=== PATIENT | female | born 1965 | race Caucasian/White ===

== ENCOUNTER → 2022-01-16 | Outpatient (CLI) | payer MEDICAID, SELFPAY | END | disposition home or self-care (01) | LOC: PSN 09:46 | PROVIDERS: Referring Provider Internal Medicine Cardiovascular Disease; Visit Provider Internal Medicine Cardiovascular Disease | DX: I48.0 Paroxysmal atrial fibrillation (principal) | CPT/HCPCS: 93225; 93226 ==

== ENCOUNTER → 2022-01-17 | Outpatient (CLI) | payer MEDICAID, SELFPAY ==
--- NOTE | 2022-01-17 10:49 | ECHOCS_ITS ---
Reason For Study: Afib, Aflutter Procedure This was a 2D Doppler, Color Flow transthoracic echocardiogram. Contrast injection was performed. Exam performed in department. Left Ventricle Normal LV size. Left ventricular systolic function is normal. The estimated ejection fraction is 55 %. No regional wall motion abnormalities noted. Right Ventricle Normal RV size. Normal systolic function. Atria Normal left atrium. Normal right atrium. Mitral Valve Normal mitral valve. Tricuspid Valve Normal tricuspid valve. Mild tricuspid valve insufficiency. Pulmonary artery systolic pressure is 20 mmHg. Aortic Valve Trisinus/trileaflet aortic valve. Pulmonic Valve Normal pulmonic valve. Great Vessels Normal aortic root. The pulmonary artery is normal size. Normal inferior vena cava. Pericardium/Pleural No pericardial effusion. Medication Diluted definity 3ml given slow IV push to enhance endocardial definition. MMode/2D Measurements & Calculations LVIDd: 4.6 cm IVSd: 0.79 cm Ao root diam: 2.9 cm LVIDs: 3.0 cm LVPWd: 0.77 cm RVDd: 2.2 cm FS: 35.6 % LAV(MOD-bp): 19.5 ml LVAd ap4: 23.2 cm2 SV(MOD-sp4): 36.8 ml LAV(MOD-bp) Indexed: 12.2 ml/m2 LVLd ap4: 6.5 cm LAV(MOD-sp2): 22.9 ml EDV(MOD-sp4): 68.6 ml LAV(MOD-sp4): 16.3 ml EDV(sp4-el): 70.0 ml LVAs ap4: 14.5 cm2 LVLs ap4: 5.6 cm ESV(MOD-sp4): 31.9 ml ESV(sp4-el): 32.1 ml EF(MOD-sp4): 53.6 % EF(sp4-el): 54.2 % SV(sp4-el): 37.9 ml LA A4 area: 10.1 cm2 LA dimension(2D): 3.4 cm RA A4 area: 6.0 cm2 Doppler Measurements & Calculations MV E max niels: 71.4 cm/sec Lat Peak E' Niels: 11.1 cm/sec Med Peak E' Niels: 7.9 cm/sec MV A max niels: 81.2 cm/sec E/E' lat: 6.4 E/E' med: 9.1 MV E/A: 0.88 Ao V2 max: 113.5 cm/sec LV V1 max: 104.0 cm/sec PA V2 max: 89.8 cm/sec Ao max P.2 mmHg LV V1 max P.3 mmHg Ao V2 mean: 81.4 cm/sec Ao mean P.8 mmHg Ao V2 VTI: 24.5 cm TR max niels: 201.8 cm/sec TR max P.3 mmHg ECHO/Echo Complete W/ Contrast Interpretation Summary Normal LV size. Left ventricular systolic function is normal. The estimated ejection fraction is 55 %. Pulmonary artery systolic pressure is 20 mmHg. Contrast injection was performed. Ordering Physician: Flip Coon Referring Physician: Flip Coon Performed By: Steph Araujo, RDCS, RVT
--- NOTE | 2022-01-17 13:49 | STRESSREP ---
Stress Test Report Exercise stress to. 56-year-old lady with a history of atrial fibrillation. Stress protocol: Resting EKG demonstrates normal sinus rhythm with a rate of 62 bpm normal intervals are noted resting blood pressure is 116/70 mmHg. The patient exercised according to the regular Jeffy protocol for total duration of 7 minutes and 46 seconds. Patient completed 1 minute and 46 seconds into stage III of the Jeffy protocol. The maximum heart rate attained was 137 bpm which was 82% of max impacted heart rate the maximum workload was 10.1 metabolic equivalents. At rest there were no ST or T wave changes noted suggest ischemia and at peak exercise upsloping ST changes were noted with did not meet the criteria for ischemia. The peak blood pressure was 130/70 mmHg which was a normal blood pressure respiratory forms to exercise. The patient did experience mild chest heaviness right from the beginning through the test. The above is of questionable significance. Conclusion: Exercise stress test with no EKG criteria for ischemia at a high workload. Chest discomfort of uncertain significance.
== END | disposition home or self-care (01) ==
LOC: CVS 10:47
PROVIDERS: Referring Provider Internal Medicine Cardiovascular Disease; Visit Provider Internal Medicine Cardiovascular Disease
DX: I48.0 Paroxysmal atrial fibrillation (principal); R07.89 Other chest pain
CPT/HCPCS: 93017; 93306; Q9957; A4216; C8929

== ENCOUNTER → 2022-06-14 | Outpatient (CLI) | payer MEDICAID, SELFPAY ==
--- NOTE | 2022-06-14 08:00 | RAD_ITS ---
INDICATION: Chest pain -- Shaggy EXAMINATION/TECHNIQUE: X-RAY - XR Chest 2 Views COMPARISON: None. FINDINGS: LINES/DEVICES: None. LUNGS: No consolidation, edema or effusion. No pneumothorax. Calcified granuloma in the left upper lobe. MEDIASTINUM AND CARDIOVASCULAR STRUCTURES: Cardiac silhouette not enlarged. Central airways and mediastinal contour are unremarkable. BONES AND SOFT TISSUES: Unremarkable. RAD/Chest PA and Lateral IMPRESSION: No acute cardiopulmonary disease. Electronically Signed: Pamela Dowd MD at 17:30 EST Reading Location ID and State: [id number] / Tel , Service support ,
[2022-06-14 08:30] LABS: Absolute Lymphocyte Count 2.39 X10^3/uL (0.83-4.51); Absolute Neutrophil Count 3.9 X10^3/uL (2.0-7.7); Basophil# 0.02 X10^3/uL; Basophil% 0.3 % (0-1); Eosinophil# 0.05 X10^3/uL; Eosinophils% 0.7 % (0-5); Hematocrit 38.9 % (37-47); Hemoglobin 12.3 g/dL (12.0-15.0); Lymphocyte # 2.39 X10^3/ul (0.83-4.51); Lymphocyte % 34.7 % (19-41); Mean Corp Hgb Conc 31.6 g/dL (32-36); Mean Corpuscular Volume 91.7 fL (81-99); Mean Platelet Vol. 10.3 fl (6.2-12.0); Monocyte# 0.53 X10^3/uL; Monocyte% 7.7 % (0-10); NRBC Flagged by Analyzer 0 % (0-5); Neutrophil # 3.88 X10^3/uL (2.7-7.7); Neutrophil % 56.3 % (47-70); Platelet Count 262 K/mm3 (150-450); RBC Distribution Width CV 12.5 % (11.6-14.6); RBC Distribution Width SD 41.5 fl (35.1-43.9); Red Blood Count 4.24 M/mm3 (4.2-5.4); White Blood Count 6.9 K/mm3 (4.4-11.0)
[2022-06-14 09:16] LABS: Anion Gap 5 (5-15); BUN 22 mg/dL (7-18); BUN/Creat Ratio 26.6 RATIO (10-20); Chloride 108 mmol/L (98-107); Creatinine, Serum 0.83 mg/dL (0.55-1.02); EST Glomerular Filtration Rate 76 mL/min (>60); Est Glom Filt Rate - Afr Amer 92 mL/min (>60); Glucose 110 mg/dL (74-106); Potassium 4.4 mmol/L (3.5-5.1); Sodium Level 141 mmol/L (136-145)
[2022-06-14 09:19] LABS: Internal QC Validated? YES +Cl - CLEAR BKGD
[2022-06-14 09:20] LABS: Pregnancy, Serum, hCG Quali. NEGATIVE Negative
== END | disposition home or self-care (01) ==
LOC: LAB 07:50
PROVIDERS: Referring Provider Nurse Practitioner Gerontology; Visit Provider Nurse Practitioner Gerontology
DX: R07.9 Chest pain, unspecified (principal); I47.1 Supraventricular tachycardia
CPT/HCPCS: 36415; 71046; 80048; 84703; 85025

== ENCOUNTER 2022-06-30 07:37 | Day surgery (SDC) | payer MEDICAID, SELFPAY ==
[2022-06-27 10:41] VITALS: BMI 23.3
--- NOTE | 2022-06-30 09:56 | CL.D_ITS ---
Patient Name: JAYCEE CHANG Study Date: 06/30/2022 Performing: Flip Coon MD Ht: 64 inches 162.56 cm : 1965 Wt: 136 lbs 61.69 kg Age: 56 Gender: female BSA: 1.66 PROCEDURE(S) PERFORMED DC01-(29646)LHC/COR/LV CLINICAL PROFILE AND INDICATIONS Indications: Suspected CAD Heart Failure: None Stress/Imaging Date: 06/19/22 CAD Presentations: Symptom unlikely to be ischemic. CONCLUSIONS Non obstructive coronary arteries Normal LV size, wall motion,and systolic function RECOMMENDATIONS Medical therapy DESCRIPTION OF PROCEDURE The patient arrived to the procedure lab. The risks and benefits of the procedure as well as a full description of our services here and current unavailability of surgical backup were fully explained to the patient and/or their significant other prior to the catheterization. The Timeout was completed, verifying the correct patient and procedure. The patient's procedural site was prepped and draped in the usual fashion. Local anesthetic was given subcutaneously to right radial region with Lidocaine 2%. Using a modified Seldinger technique, arterial access was obtained via the right radial artery, a 6Fr sheath was inserted. Left Coronary Artery selective angiography was performed in multiple views using a 5 Fr. 4.0 Jasper catheter. Right Coronary Artery selective angiography was then performed in multiple views using a 5 Fr. 4.0 Jasper catheter. Left Ventriculography was performed in GALLOWAY projection using a 5 Fr. Pigtail catheter. LV to AO pullback pressures were then recorded.The arterial sheath was pulled and a TR Band was applied for hemostasis. 10cc of air CORONARY ANGIOGRAPHY DOMINANCE: Left Dominant LEFT HEART ASSESSMENT Left Ventricular Ejection Fraction: by LV Gram 60 % Normal LV wall motion Normal Left Ventricular systolic function LEFT MAIN: Angiographically normal LEFT ANTERIOR DESCENDING ARTERY: Angiographically normal CIRCUMFLEX ARTERY: No significant disease noted RIGHT CORONARY ARTERY: Angiographically normal COMPLICATIONS No Complications PROCEDURE MEDICATIONS Fentanyl 50 mcg IV Versed 1 mg IV Oxygen: 2 L/min via nasal cannula Benadryl 50 mg IV @ 06/30/2022 09:18:49 Heparin given IA 06/30/2022 09:37:00 Solu-medrol 125 mg IV 06/30/2022 09:19:02 SUMMARY OF HEMODYNAMIC DATA Time AIR REST ECG 07:57:29 Art 122/52 (77) 09:34:00 AO 118/69 (92) SA 09:38:30 LV 113/8, 14 09:43:06 LV 113/3, 5 09:43:12 LV 116/1, 6 09:44:11 LVp 113/0, 6 09:44:16 AOp 126/53 (85) 09:44:21 Signed By Flip Coon MD On 06/30/2022 09:55:14 Flip Coon MD
== END 2022-06-30 12:25 | disposition home or self-care (01) ==
PROVIDERS: Referring Provider Internal Medicine Cardiovascular Disease; Visit Provider Internal Medicine Cardiovascular Disease
DX: I48.0 Paroxysmal atrial fibrillation (principal); R07.89 Other chest pain; Z79.899 Other long term (current) drug therapy
CPT/HCPCS: 93458; 99152; 99153; J7040; Q9967; C1769; C1894

== ENCOUNTER → 2024-06-10 | Outpatient (CLI) | payer MEDICAID, SELFPAY ==
[2024-06-10 12:08] LABS: Absolute Lymphocyte Count 1.78 X10^3/uL (0.83-4.51); Absolute Neutrophil Count 3.7 X10^3/uL (2.0-7.7); Basophil# 0.02 X10^3/uL; Basophil% 0.3 % (0-1); Eosinophil# 0.03 X10^3/uL; Eosinophils% 0.5 % (0-5); Hematocrit 40.1 % (37-47); Hemoglobin 13.2 g/dL (12.0-15.0); Lymphocyte # 1.78 X10^3/ul (0.83-4.51); Lymphocyte % 30.1 % (19-41); Mean Corp Hgb Conc 32.9 g/dL (32-36); Mean Corpuscular Hgb 29.6 pg (27.0-32.0); Mean Corpuscular Volume 89.9 fL (81-99); Mean Platelet Vol. 10.2 fl (6.2-12.0); Monocyte# 0.41 X10^3/uL; Monocyte% 6.9 % (0-10); NRBC Flagged by Analyzer 0 % (0-5); Neutrophil # 3.65 X10^3/uL (2.7-7.7); Neutrophil % 61.9 % (47-70); Platelet Count 264 K/mm3 (150-450); RBC Distribution Width CV 12.3 % (11.6-14.6); Red Blood Count 4.46 M/mm3 (4.2-5.4); White Blood Count 5.9 K/mm3 (4.4-11.0)
[2024-06-10 13:38] LABS: ALB/GLOB Ratio 1.1 RATIO (0.9-2.4); AST(SGOT) 13 U/L (15-37); Alanine Aminotransfer ALT/SGPT 17 U/L (13-56); Albumin, Serum 4.1 g/dL (3.2-5.0); Alkaline Phosphatase 68 U/L (45-117); Anion Gap 5 (5-15); BUN 13 mg/dL (7-18); BUN/Creat Ratio 16.1 RATIO (10-20); Calcium,Total 9.9 mg/dL (8.5-10.1); Chloride 104 mmol/L (98-107); Creatinine, Serum 0.81 mg/dL (0.55-1.02); EST Glomerular Filtration Rate 78 mL/min (>60); Est Glom Filt Rate - Afr Amer 94 mL/min (>60); Globulin 3.6 g/dL (2.2-4.2); Glucose 103 mg/dL (74-106); Potassium 4.5 mmol/L (3.5-5.1); Protein, Total 7.7 g/dL (6.4-8.2); Sodium Level 138 mmol/L (136-145)
== END | disposition home or self-care (01) ==
LOC: LAB 11:23
PROVIDERS: Referring Provider Physician Assistant Medical; Visit Provider Physician Assistant Medical
DX: R00.2 Palpitations (principal); I48.0 Paroxysmal atrial fibrillation
CPT/HCPCS: 36415; 80053; 83735; 84443; 85025